=== PATIENT | male | born 1995 | race Caucasian/White ===

== ENCOUNTER 2021-04-22 20:43 | Emergency (ER) | payer OTHER ==
[~2021-04-22] VITALS: Ht 177.8 cm; Wt 104.3 kg
--- NOTE | 2021-04-22 21:20 | NUR ---
Dr. Ford at bedside for MSE.
[2021-04-22] MEDS ORDERED: THIAMINE HCL 100 MG TABLET PO ONE (21:30)
[2021-04-22] MEDS ORDERED: IV NORMAL SALINE 1000 ML BAG IV ONE (21:30)
[2021-04-22] MEDS ORDERED: HYDROMORPHONE 1 MG/1 ML DISP.SYRIN IV ONE ×2 (21:30→23:00)
[2021-04-22] MEDS ORDERED: ONDANSETRON 4 MG/2 ML VIAL IV ONE (21:30)
[2021-04-22] MEDS ORDERED: THIAMINE HCL 100 MG TABLET ONE (21:41)
[2021-04-22] MEDS ORDERED: HYDROMORPHONE 1 MG/1 ML DISP.SYRIN ONE ×2 (21:41→23:06)
[2021-04-22] MEDS ORDERED: ONDANSETRON 4 MG/2 ML VIAL ONE (21:41)
[2021-04-22 21:46] LABS: HEMATOCRIT 45.1 % (36.7-47.1); MEAN CORPUSCULAR VOLUME 98.5 fL (73.0-96.2); PLATELET COUNT (AUTO) 270 K/uL (152-348)
[2021-04-22 21:55] LABS: CARBON DIOXIDE 25 mmol/L (21-32); CHLORIDE 102 mmol/L (98-107); CREATININE 0.7 mg/dL (0.6-1.3); GLUCOSE 102 mg/dL (74-106); POTASSIUM 3.6 mmol/L (3.5-5.1); UREA NITROGEN, BLOOD 5 mg/dL (7-18)
--- NOTE | 2021-04-22 22:00 | NUR ---
Ultrasound at bedside.
[2021-04-22 22:06] LABS: ALANINE AMINOTRANSFERASE 80 U/L (16-63); ALKALINE PHOSPHATASE 107 U/L (50-136); ASPARTATE AMINOTRANSFERASE 110 U/L (15-37); BILIRUBIN,DIRECT 0.1 mg/dL (0.0-0.2); BILIRUBIN,TOTAL 0.3 mg/dL (0.2-1.0); LIPASE 206 U/L (73-393)
[2021-04-22] MEDS ORDERED: SWABABLE VALVE TRANSFER SET EA MC ONE (22:18)
[2021-04-22] MEDS ORDERED: IOHEXOL 300MG/ML 100 ML INFUS..BTL ONE (22:18)
[2021-04-22] MEDS ORDERED: IV NORMAL SALINE 250 ML IV ONE (22:18)
--- NOTE | 2021-04-22 22:19 | NUR ---
Pt out of ER for CT.
[2021-04-22 22:37] LABS: *BILIRUBIN,URIN NEGATIVE (NEGATIVE); *BLOOD, URINE TRACE INTACT (NEGATIVE); *CLARITY,URINE CLEAR (CLEAR); *COLOR,URINE YELLOW (YELLOW); *KETONES,URINE NEGATIVE (NEGATIVE); UGLUCOSE NEGATIVE (NEGATIVE)
[2021-04-22 22:38] LABS: *UROBILINOGEN,URINE 0.2 E.U./dl (NORMAL); LEUKOCYTE ESTERASE ,URINE NEGATIVE (NEGATIVE); NITRITE, URINE NEGATIVE (NEGATIVE)
[2021-04-22] MEDS ORDERED: CHLO25CA22 PO (22:56)
--- NOTE | 2021-04-23 00:03 | NUR ---
IV removed. Catheter intact and site benign. Pressure and 4x4 gauze applied to site. No bleeding noted.
--- NOTE | 2021-04-23 00:05 | NUR ---
Patient discharged to home in stable condition with mother and sister taking patient home. Written and verbal after care instructions given. Patient/family verbalizes understanding of instructions. Stressed follow up or return to ER for worsening s/s.
[2021-04-23 00:06] VITALS: BP 145/92
== END 2021-04-23 00:06 | disposition home or self-care (01) ==
LOC: ER 21:21
DX: F10.121 Alcohol abuse with intoxication delirium (principal); Y90.8 Blood alcohol level of 240 mg/100 ml or more; K70.9 Alcoholic liver disease, unspecified; K70.0 Alcoholic fatty liver
CPT/HCPCS: 36415; 71045; 74177; 76705; 80048; 80076; 80320; 81003; 82140; 83605; 83690; 84484; 85025; 85379; 93005; 96361; 96374; 96375; 96376; 99285; J1170 ×2; J2405; Q9967; 70030-TC; A4663; G0480; J7030; J7050